=== PATIENT | male | born 1970 | race Caucasian/White ===

== ENCOUNTER 2019-09-21 21:47 | Emergency (ER) | payer OTHER ==
[2019-09-21 22:10] VITALS: BP 139/86; PULSE 58; TEMP 98; BMI 27.4
--- NOTE | 2019-09-21 23:07 | PDOC ---
*Physical Exam - Vital Signs Last Vital Signs Temp Pulse Resp BP Pulse Ox 98 F 58 L 18 139/86 98 09/21/19 22:06 09/21/19 22:06 09/21/19 22:06 09/21/19 22:06 09/21/19 22:06 Medical Decision Making - Medical Decision Making 09/21/19 23:07 Patient seen by the advanced practice provider under my supervision. Ancillary testing reviewed as necessary. I agree with plan as outlined by the advanced practice provider. Discharge - Discharge Information Problems reviewed: Yes Clinical Impression/Diagnosis: Head ache Qualifiers: Headache type: unspecified Headache chronicity pattern: acute headache Intractability: not intractable Qualified Code(s): R51 - Headache Disposition: HOME - Additional Discharge Information Prescriptions: Ibuprofen 600 mg PO QID PRN #20 tablet PRN Reason: Pain - Follow up/Referral - Patient Discharge Instructions Patient Printed Discharge Instructions: Easing a Headache the Natural Way Additional Instructions: drink plenty of fluids. You may take ibuprofen every 6 hours as needed for pain Please follow-up with the neurologist as soon as possible - Post Discharge Activity Work/Back to School Note: Back to Work
--- NOTE | 2019-09-21 23:42 | PDOC ---
History of Present Illness - General Chief Complaint: Headache Stated Complaint: HEADACHE Time Seen by Provider: 09/21/19 23:07 History Source: Patient - History of Present Illness Initial Comments: 09/21/19 23:45 49 year old c/o right ear pain x 1 month. seen by pcp was treated by ear infection. 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 patient reports he has completed azithromycin and prednisone. patient reports that he was seen by his pcp today for same complaint and was referred to neurology. patient unable to get neurology appt for 3 weeks. patient denies taking any pain medication today. no pmhx 09/22/19 01:02 Past History - Past Medical History Allergies/Adverse Reactions: Allergies Allergy/AdvReac Type Severity Reaction Status Date / Time No Known Allergies Allergy Verified 09/22/19 00:25 Home Medications: Ambulatory Orders Ibuprofen 600 mg PO QID PRN #20 tablet 09/22/19 COPD: No - Psycho Social/Smoking Cessation Hx Smoking History: Never smoked Hx Alcohol Use: No Drug/Substance Use Hx: No Review of Systems - Review of Systems Able to Perform ROS?: Yes Is the patient limited [place] proficient: No HEENTM: Yes: Ear Pain *Physical Exam - Vital Signs Last Vital Signs Temp Pulse Resp BP Pulse Ox 98 F 58 L 18 139/86 98 09/21/19 22:06 09/21/19 22:06 09/21/19 22:06 09/21/19 22:06 09/21/19 22:06 - Physical Exam General Appearance: Yes: Appropriately Dressed HEENT: positive: TMs Normal, Pharynx Normal, Other (patient has TMJ tenderness) Respiratory/Chest: positive: Lungs Clear, Normal Breath Sounds Extremity: positive: Normal Capillary Refill, Normal Inspection Integumentary: positive: Normal Color, Dry, Warm 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 The sulcal pattern is normal for the patient's age. There is no bleed, mass, extra-axial fluid collection or mass effect. No skull fracture or skull lesion is identified. Small air-fluid level in the right maxillary sinus could represent sinusitis. The other visualized paranasal sinuses and mastoid air cells are clear. patient reports that he was recently seen by ENT patient completed azithromycin pack,. will refer patient to ENT Discharge - Discharge Information Problems reviewed: Yes Clinical Impression/Diagnosis: Head ache Qualifiers: Headache type: unspecified Headache chronicity pattern: acute headache Intractability: not intractable Qualified Code(s): R51 - Headache Disposition: HOME - Additional Discharge Information Prescriptions: Ibuprofen 600 mg PO QID PRN #20 tablet PRN Reason: Pain - Follow up/Referral - Patient Discharge Instructions Patient Printed Discharge Instructions: Easing a Headache the Natural Way Additional Instructions: drink plenty of fluids. You may take ibuprofen every 6 hours as needed for pain Please follow-up with the neurologist as soon as possible - Post Discharge Activity Work/Back to School Note: Back to Work
[2019-09-22] MEDS ORDERED: IBUPROFEN 600 MG TABLET (FP) PO ONE (00:22)
== END 2019-09-22 01:56 | disposition home or self-care (01) ==
LOC: JER 21:47
DX: R51 Headache (principal)
CPT/HCPCS: 70450-TC; 99284-25